=== PATIENT | female | born 1950 | race Caucasian/White ===

== ENCOUNTER → 2016-10-20 | Outpatient (CLI) | payer MEDICAID ==
[~2016-10-20] MED LIST: AC325T PO; AC500T PO; ALBU2.5V4 INH; BISM262O27 PO; CALC-72 PO; DEXT1DRO8 OP; DIVA250T4 PO; DIVA500T7 PO; DNPZ10T PO; FESO8TAB PO; FLUT16SP NS; FLUT1DIS2 IH; IBP200T PO; LORA10TA7 PO; LSRT50T PO; LVCR25100 PO; LVT.05T PO; MAGN400O7 PO; MAGN84TA PO; MELO7.5T PO; METH454P PO; MNTL10T PO; MULT-593 PO; MULT-955 PO; NFLOSA25TA PO; NYST1POW2 PO; QUET50TA21 PO; SRTR100T PO; SULF-221 PO; ZPR80C PO
[2016-10-20 11:29] LABS: BASOPHILS % (AUTO) 0 % (0-2); EOSINOPHILS # (AUTO) 0.2 10^3uL; EOSINOPHILS % (AUTO) 2 % (0-4); LYMPHOCYTES # (AUTO) 1.4 X10^3; MEAN CORPUSCULAR HGB CONC 33.3 g/dL (31.0-37.0); MEAN CORPUSCULAR VOLUME 87 FL (80-100); MEAN PLATELET VOLUME 9.9 FL (6.0-9.5); MONOCYTES # (AUTO) 0.9 X10^3; MONOCYTES % (AUTO) 12 % (3-11); NEUTROPHILS # (AUTO) 5.5 X10^3; NEUTROPHILS % (AUTO) 68 % (51-67); PLATELET COUNT 135 10^3uL (150-450); WHITE BLOOD COUNT 8.05 10^3uL (4.0-11.0)
[2016-10-20 11:40] LABS: ANION GAP 14.6 MEQ/L (3-15)
== END ==
LOC: LAB 11:16
PROVIDERS: ATTEND Family Medicine
DX: D50.8 Other iron deficiency anemias (principal); R79.89 Other specified abnormal findings of blood chemistry
CPT/HCPCS: 36415; 80048; 85025

== ENCOUNTER → 2016-10-28 | Outpatient (REF) | payer MEDICAID ==
[2016-10-28 10:59] LABS: BILIRUBIN,URINE Negative (Negative); COLOR,URINE Yellow; GLUCOSE, URINE (UA) Negative (Negative); LEUKOCYTE ESTERASE ,URINE Trace (Negative); UROBILINOGEN,URINE 0.2 mg/dL (0.2-1.0)
[2016-10-28 11:00] LABS: CLARITY,URINE Slightly Cloudy
[2016-10-28 11:03] LABS: URINE CENTRIFUGED VOLUME 12 mL
[2016-10-28 11:06] LABS: RBC,URINE 0-2 /HPF
== END ==
LOC: LAB 10:43
PROVIDERS: ATTEND Family Medicine
DX: N39.0 Urinary tract infection, site not specified (principal); R82.99 Other abnormal findings in urine
CPT/HCPCS: 81003; 81015; 87077; 87088; 87186

== ENCOUNTER → 2016-11-22 | Outpatient (CLI) | payer MEDICAID | LOC: EMS 08:21 | PROVIDERS: ATTEND Family Medicine | DX: I46.9 Cardiac arrest, cause unspecified (principal) ==

== ENCOUNTER 2017-01-13 15:00 | Outpatient (RCR) | payer MEDICAID ==
--- NOTE | 2017-01-12 10:22 | PT/OT/ST INITIAL EVALUATION ---
Department of Health and Human Services Form Approved [facility] Care Financing Administration OMB No. [id number] PLAN OF CARE/ASSESSMENT FOR OUTPATIENT REHABILITATION (Complete for Initial Claims Only) 1. PATIENT'S NAME Jamar Wyatt 2. ACC # [id number] 3. [facility] [id number] 4. PROVIDER NO. [id number] 5. TYPE: PT 6. PRIOR HOSPITALIZATION None 7. PRIMARY DX Lower extremity weakness 8. SECONDARY DX Decreased transfers 9. ONSET DATE April 2015 10. REFERRAL DATE 12/22/2016 11. SOC. DATE 01/07/2017 12. TIME OF EVAL 15:[address] Cedillo 13. CHARGES/UNITS Initial evaluation and therapeutic activity 14. G CODES NA 15. PRIOR LEVEL OF FUNCTION; PERTINENT HISTORY (Prior therapy results, reason for referral.) S: Reason for referral: The patient was referred to physical therapy by Dr. Cedillo with the diagnosis of decreased transfers and lower extremity weakness. Description/mechanism of injury: The patient had fallen and fractured her right ankle in April 2015. She then underwent home health afterwards, however, over the last year the patient has had decreased mobility and difficulty with transfers. The patient's staff reports that a lot of this is due to anxiety and fear of falling again. Current level of function: The patient is mentally handicapped, wheelchair bound 67-year-old female. Pain level: Currently rates her pain to be 2/10. Past medical history: Includes mentally handicapped, osteoporosis, osteoarthritis, chronic knee pain, impulsive behaviors, asthma, Parkinson's, dementia, surgical repair fractured right ankle, hypertension, and positive hepatitis B. Therapy Goal: The staff's goal is for the patient to be able to transfer safely and more independently. 16. INITIAL ASSESSMENT/SAFETY PRECAUTIONS/MEDICAL COMPLICATIONS (Level of function at start of care. Be specific, use objective measures, list problems.) O: APPEARANCE AND OBSERVATION: The patient is a 67-year-old mentally handicapped female. She demonstrates forward head posture and rounded shoulders. She is in a wheelchair. She is able to self-propel the wheelchair using her upper extremities slowly. RANGE OF MOTION/FLEXIBILITY: Shoulder range of motion normal limits. Elbow flexion and extension normal limits. The patient demonstrated good hand dexterity and six pack packer. Lower extremity hip flexion and extension moderately limited. Knee flexion and extension normal limits. Ankle range of motion minimally limited dorsiflexion. All other motions normal limits. STRENGTH: Shoulder strength was 4+/5 manual muscle test all motions and directions. Elbow strength 5/5 manual muscle test. Lower extremity strength grossly 4-/5 manual muscle test bilaterally. FUNCTIONAL ACTIVITIES: The patient willing to participate with therapy up until the point of standing up from the chair at front-wheeled walker. After continued coaxing by both the caregiver, and therapist, the patient did attempt to stand one time with minimal assist. The patient stood less than 10 seconds. Verbal cues for more upright posture. The patient very anxious and was trying to sit back down. The patient safely sat down. Able to adjust herself independently in wheelchair for positioning. TODAY'S TREATMENT: Educated and instructed caregiver on verbal cueing when the patient stands up at walker, and also instructed caregiver on possibly finding shorter walker so the patient could demonstrate more upright posture. 17. INITIAL POC: (Specify procedures, modalities, short and prison goals) A: The patient limited transfers and mobility due to some weakness, fear and anxiety. PROGNOSIS: The patient is a fair candidate for physical therapy to work on transfers and mobility based on her willingness to participate. SHORT TERM GOALS: 1. The patient to participate 75% of the time in therapy session in 2 weeks. 2. The patient to transfer from chair to bed with contact-guard assist in 2 weeks. 3. The patient to ambulate at front-wheeled walker 30 feet with minimum assist in 4 weeks. P: The patient will be seen 1 time a week over the next 4 weeks. Plan on progressing the patient with range of motion, transfers, balance, and gait. We will continue to educate the caregivers on possible activities to help improve this. 18. FREQUENCY 1 time per week 19. DURATION 4 weeks 20. FUNCTIONAL LEVEL (End of claim period) 21. PHYSICIAN SIGNATURE ? ON FILE OR ENTER HERE: 22. DATE: I certify the need for these services furnished under this plan of care and if for partial hospitalization. 23. CERTIFICATION FROM THROUGH [facility]-[id number]
[2017-01-24] MEDS ORDERED: AMLO10TA82 PO (16:24)
[2017-01-24] MEDS ORDERED: ESCI20TA39 PO (16:24)
[2017-01-24] MEDS ORDERED: FLUT1DIS2 IH (16:24)
[2017-01-24] MEDS ORDERED: FLUT16SP NSEACH (16:42)
[2017-01-24] MEDS ORDERED: HYDR-3921 PO (16:42)
[2017-01-24] MEDS ORDERED: ZINC56CR2 TP (16:42)
[2017-01-24] MEDS ORDERED: [UNRECOGNIZED DRUG - CODE] PO (16:48)
[2017-01-24] MEDS ORDERED: [UNRECOGNIZED DRUG - CODE] PO (16:48)
[2017-01-24] MEDS ORDERED: FESO8TAB PO (16:54)
[2017-01-24] MEDS ORDERED: TR5C15 EXT (16:54)
[2017-01-24] MEDS ORDERED: TRM50T PO (16:59)
[2017-01-24] MEDS ORDERED: IBP200T PO (16:59)
== END 2017-03-04 19:32 | disposition home or self-care (01) ==
LOC: PT 15:00
PROVIDERS: ATTEND Family Medicine
DX: M12.88 Other specific arthropathies, not elsewhere classified, other specified site (principal); R29.898 Other symptoms and signs involving the musculoskeletal system
CPT/HCPCS: 97110; 97161; G8978; G8979

== ENCOUNTER 2017-01-24 15:38 | Emergency (ER) | payer MEDICAID ==
[~2017-01-24] VITALS: Ht 152.4 cm; Wt 112.0 kg
--- OUTSIDE RECORDS SUMMARY | 2017-01-24 15:43 | XMS REPORT | Continuity of Care Document ---
Author Author Jazz Schulz Address Unknown Phone Unavailable Care Team Providers Care Mobile Unit Assistant Name Role Phone [employer] Unavailable Unavailable Problems Medications Allergies, Adverse Reactions, Alerts Immunizations Results Vital Signs Encounters Location Location Details Encounter Type Encounter Number Reason For Visit Attending Provider ADM Date DC Date Status Source [facility] Non Billable [id number] 07/25/2016 07/25/2016 Active [facility] CLI [id number] Meka Van 08/01/201608/01 Active [facility] CLI [id number] Era Saldaña 08/21/2016 08/21/2016 Active [facility] Procedures Plan of Care Social History Assessment and Plan Family History Value Date Source Advance Directives Order Name Results Value Date Source
--- OUTSIDE RECORDS SUMMARY | 2017-01-24 15:43 | XMS REPORT | Continuity of Care Document ---
Author Author Jazz Schulz Address Unknown Phone Unavailable Care Team Providers Care Signal Maintainer Helper Name Role Phone [employer] Unavailable Unavailable Problems Medications Allergies, Adverse Reactions, Alerts Immunizations Results Vital Signs Encounters Location Location Details Encounter Type Encounter Number Reason For Visit Attending Provider ADM Date DC Date Status Source [facility] Non Billable [id number] 07/25/2016 07/25/2016 Active [facility] CLI [id number] Meka Van 08/01/201608/01 Active [facility] CLI [id number] Era Saldaña 08/21/2016 08/21/2016 Active [facility] Procedures Plan of Care Social History Assessment and Plan Family History Value Date Source Advance Directives Order Name Results Value Date Source
[2017-01-24 15:44] VITALS: BP 141/50
--- OUTSIDE RECORDS SUMMARY | 2017-01-24 15:47 | XMS REPORT | Continuity of Care Document ---
Author Author Jazz Schulz Address Unknown Phone Unavailable Care Team Providers Care Cellulose Insulation Helper Name Role Phone [employer] Unavailable Unavailable Problems Medications Allergies, Adverse Reactions, Alerts Immunizations Results Vital Signs Encounters Location Location Details Encounter Type Encounter Number Reason For Visit Attending Provider ADM Date DC Date Status Source [facility] Non Billable [id number] 07/25/2016 07/25/2016 Active [facility] CLI [id number] Meka Van 08/01/201608/01 Active [facility] CLI [id number] Era Saldaña 08/21/2016 08/21/2016 Active [facility] Procedures Plan of Care Social History Assessment and Plan Family History Value Date Source Advance Directives Order Name Results Value Date Source
--- OUTSIDE RECORDS SUMMARY | 2017-01-24 15:47 | XMS REPORT | Continuity of Care Document ---
Author Author Jazz Schulz Address Unknown Phone Unavailable Care Team Providers Care Financial Assistance Advisor Name Role Phone [employer] Unavailable Unavailable Problems Medications Allergies, Adverse Reactions, Alerts Immunizations Results Vital Signs Encounters Location Location Details Encounter Type Encounter Number Reason For Visit Attending Provider ADM Date DC Date Status Source [facility] Non Billable [id number] 07/25/2016 07/25/2016 Active [facility] CLI [id number] Meka Van 08/01/201608/01 Active [facility] CLI [id number] Era Saldaña 08/21/2016 08/21/2016 Active [facility] Procedures Plan of Care Social History Assessment and Plan Family History Value Date Source Advance Directives Order Name Results Value Date Source
[2017-01-24] MEDS ORDERED: FLUT1DIS2 IH (16:24)
[2017-01-24] MEDS ORDERED: ESCI20TA39 PO (16:24)
[2017-01-24] MEDS ORDERED: AMLO10TA82 PO (16:24)
[2017-01-24] MEDS ORDERED: HYDR-3921 PO (16:42)
[2017-01-24] MEDS ORDERED: FLUT16SP NSEACH (16:42)
[2017-01-24] MEDS ORDERED: ZINC56CR2 TP (16:42)
--- NOTE | 2017-01-24 16:46 | Diagnostic Imaging Report ---
INDICATION: Right foot pain. FINDINGS: 3 views of right foot show a corner fracture of the base of the proximal phalanx of the first toe. There is no other fracture seen. IMPRESSION: Nondisplaced fracture of the base of the proximal phalanx of the big toe on the medial corner. It does extend to the articular surface. Dictated by: Dictated on workstation # [id number]
[2017-01-24] MEDS ORDERED: [UNRECOGNIZED DRUG - CODE] PO (16:48)
[2017-01-24] MEDS ORDERED: [UNRECOGNIZED DRUG - CODE] PO (16:48)
--- NOTE | 2017-01-24 16:48 | Diagnostic Imaging Report ---
INDICATION: Right ankle pain. FINDINGS: 3 views of right ankle show postop changes from internal fixation of a bimalleolar fracture. The fractures are healed. There is no acute fracture or dislocation seen. IMPRESSION: Orthopedic hardware from prior internal fixation. No acute abnormalities seen in the right ankle. Dictated by: Dictated on workstation # [id number]
[2017-01-24] MEDS ORDERED: TR5C15 EXT (16:54)
[2017-01-24] MEDS ORDERED: FESO8TAB PO (16:54)
[2017-01-24] MEDS ORDERED: IBP200T PO (16:59)
[2017-01-24] MEDS ORDERED: TRM50T PO (16:59)
== END 2017-01-24 17:46 | disposition home or self-care (01) ==
LOC: ED 15:42
DX: S93.401A Sprain of unspecified ligament of right ankle, initial encounter (principal); S93.601A Unspecified sprain of right foot, initial encounter; W22.03XA Walked into furniture, initial encounter; Y93.89 Activity, other specified; Y92.129 Unspecified place in nursing home as the place of occurrence of the external cause
CPT/HCPCS: 73610; 99282; 99283